=== PATIENT | male | born 1995 | race Caucasian/White ===

== ENCOUNTER 2019-05-12 22:40 | Emergency (ER) | payer MEDICAID ==
[~2019-05-12] VITALS: Ht 167.6 cm; Wt 60.0 kg
[2019-05-13] MEDS ORDERED: LORAZEPAM 2MG/ML CPJ IM STA (00:09)
[2019-05-13] MEDS ORDERED: OLANZAPINE 10 MG/VIAL IM ONE (00:15)
[2019-05-13 07:30] VITALS: BP 102/70
== END 2019-05-13 11:29 | disposition home or self-care (01) ==
LOC: ER 22:40
DX: F15.10 Other stimulant abuse, uncomplicated (principal); F12.10 Cannabis abuse, uncomplicated
CPT/HCPCS: 96372; 99283; J2060; J3490; Z7610